=== PATIENT | female | born 1950 | race African-American/Black ===

== ENCOUNTER 2023-09-14 14:36 | Emergency (ER) | payer OTHER, SELFPAY ==
--- NOTE | ~2023-09-14 | XR_ITS ---
EXAMINATION: XR knee RT min 4V DATE: 09/14/2023 15:31 INDICATION: Right knee pain. TECHNIQUE: 4 views of right knee were obtained. COMPARISON: None. FINDINGS: Bone alignment is normal. No fracture. There is moderate osteoarthritis of medial compartme nt and mild osteoarthritis of lateral and patellofemoral compartments. There is a moderate-sized knee joint effusion. IMPRESSION: 1. Moderate right knee osteoarthritis. 2. Moderate-sized right knee joint effusion. Reviewed, dictated and finalized at location E.
[2023-09-14 14:55] VITALS: BP 116/58; PULSE 71; RESP 18; TEMP 36.4; O2SAT 100
--- NOTE | 2023-09-14 15:02 | ED.EXTPRO ---
HPI - Extremity Problem General Chief complaint: Extremity Problem,Nontraumatic Stated complaint: Right Knee Pain Time Seen by Provider: 09/14/23 15:13 Source: patient, RN notes reviewed and old records reviewed Mode of arrival: ambulatory Limitations: no limitations History of Present Illness HPI Narrative: Patient presents with complaints of right knee pain and swelling. She reports that she noted this today. States that over the past several weeks she has been doing increased physical activity. She denies any injury or trauma. She denies any fever, chills, sweats. She has not been taking any medication for her condition, she has been elevating the affected extremity with poor relief. She has also been using a [id number] knee brace, again poor relief. She voices no other concerns or complaints today Related Data Home Medications Medication Instructions Recorded Confirmed hydrochlorothiazide 12.5 mg tablet 12.5 mg PO DAILY 09/14/23 09/14/23 lisinopril 5 mg tablet 5 mg PO DAILY 09/14/23 09/14/23 metoprolol succinate 25 mg 25 mg PO DAILY 09/14/23 09/14/23 tablet,extended release 24 hr Allergies Allergy/AdvReac Type Severity Reaction Status Date / Time No Known Allergies Allergy Verified 09/14/23 15:21 Review of Systems Review of Systems: All systems reviewed & are unremarkable except as noted in HPI and below Constitutional: Constitutional: Reports no additional constitutional complaints ENT: Reports system reviewed and no additional complaints, except as documented Cardiovascular: Cardiovascular: Reports no additional cardiovascular complaints Respiratory: Respiratory: Reports no additional respiratory complaints Gastrointestinal: Gastrointestinal: Reports no additional gastrointestinal complaints Musculoskeletal: Musculoskeletal: Reports as per HPI, Reports arthralgias (right knee) and Reports joint swelling (right knee) PMFSH Comments At the time of my signature, I reviewed and agree with the nursing past medical, surgical, social, and family history. There is no relevant family history pertinent to the patient complaint. Exam Const: General: cooperative, no acute distress, alert and awake Orientation/consciousness: oriented to person, oriented to place and oriented to time HENMT: Head: normal to inspection Resp: Effort & Inspection: normal respiratory effort and able to speak in complete sentences Auscultation: clear to auscultation bilaterally, no crackles, no rales, no rhonchi and no wheezes Cardio: Palpation: normal PMI Rate: regular rate Rhythm: regular rhythm Heart sounds: S1 normal heart sound present and S2 normal heart sound present Neuro: General: oriented to person, oriented to place and oriented to time Cranial nerves: Yes CN's II-XII intact bilaterally Psych: Appearance: grossly normal Thought process: Normal thought process present Insight: Good insight present (Psych) Judgement: Good judgement present (Psych) Course Course Level of Care: Express Care Visit Vital Signs Vital signs: Vital Signs Temperature 97.6 F 09/14/23 14:55 Pulse Rate 71 09/14/23 14:55 Respiratory Rate 18 09/14/23 14:55 Blood Pressure 116/58 L 09/14/23 14:55 Pulse Oximetry 100 09/14/23 14:55 Oxygen Delivery Room Air 09/14/23 14:55 Temperature 97.6 F 09/14/23 14:55 Pulse Rate 71 09/14/23 14:55 Respiratory Rate 18 09/14/23 14:55 Blood Pressure 116/58 L 09/14/23 14:55 Pulse Oximetry 100 09/14/23 14:55 Oxygen Delivery Room Air 09/14/23 14:55 Reviewed MDM - Extremity (Nontraumatic) MDM Narrative Medical decision making narrative: Nontraumatic pain to right knee. X-ray consistent with moderate effusion and moderate osteoarthritis. Discussed CROCKETT therapy, patient has been doing this at home. Tylenol per package instructions. Emergency department for new or worse symptoms, follow-up primary care provider Discharge instructions reviewed with dave
== END 2023-09-14 15:49 | disposition home or self-care (01) ==
PROVIDERS: Emergency Provider Nurse Practitioner Family; PCP Family Medicine
DX: M17.11 Unilateral primary osteoarthritis, right knee (principal); I10 Essential (primary) hypertension
CPT/HCPCS: 73564; 99213; G0463